=== PATIENT | male | born 1970 | race Caucasian/White ===

== ENCOUNTER 2020-06-06 13:48 | Inpatient (IN) | payer OTHER, SELFPAY ==
[2020-06-06] VITALS (25 sets, daily range): BP systolic 139–217; BP diastolic 104–184; PULSE 58–130; RESP 15–35; TEMP 36.5–37; O2SAT 91–98; BMI 46.3; BMI 45.6
--- NOTE | 2020-06-06 14:17 | EKG12_ITS ---
Test Reason : SOB Blood Pressure : / mmHG Vent. Rate : 134 BPM Atrial Rate : 150 BPM P-R Int : 000 ms QRS Dur : 104 ms QT Int : 346 ms P-R-T Axes : 000 017 077 degrees QTc Int : 516 ms Atrial fibrillation with rapid ventricular response with premature ventricular or aberrantly conducte d complexes Nonspecific T wave abnormality Abnormal ECG Confirmed by SERA ÁLVAREZ, BALTAZAR ([id number]), manuscript editor DIAMOND PHILIPPE ([id number]) on 06/08/2020 12:43:09 PM Referred By: ANN-MARIE Confirmed By:BALTAZAR ZAMORA MD
--- NOTE | 2020-06-06 14:18 | ED.DCSUM_ITS ---
History of Present Illness Chief Complaint: Shortness of Breath Informant: Patient Onset: Today Activity at onset: Light Activity Timing: Waxes and wanes Quality: Dyspnea on exertion Current Severity: Gone Maximum Severity: Severe Worsened by: Exertion Relieved by: Rest Associated Symptoms: Negative for: Cough, Fever Chest Pain: None Narrative: 50-year-old male with a history of high blood pressure presenting with shortness of breath that occurred today with very little exertion/walking on a flat surface. States he has had dyspnea with exertion that has been relatively mild ever since he had Covid at the beginning of April. 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 He then quarantine until the end of April. He states ever since he has had some mild dyspnea with exertion but no chest discomfort. Today his episode was way out of proportion to what it usually has been with regards to how much exertion he was doing. He also states that his son several years ago in an accident, and as a result when his blood pressure medicine ran out he stopped taking it and has not seen a doctor since. This is also related to the fact that his PCP Dr. Carlson left the area. In the last week or so, he has also had some edema in both of his legs. He denies orthopnea but states he never lies down flat, he has an incline bed. PE Risk Factors: Negative for: Cancer, OCP + Smoking + > 35, Prior DVT or PE, Recent immobilization, Recent surgery, Recent travel - Past Medical History (1) Hypertension Status: Chronic Past Medical History - Allergies and Home Meds Allergies/Adverse Reactions: Allergies No Known Allergies Allergy (Verified 06/06/20 13:48) Primary Care Physician: Stephane Carlson MD [NON-STAFF] - Lives: Spouse/ Significant Other Review of Systems General: Reports: Malaise. Denies: Chills, Fever, Sweats Eyes: Reports: - - No current loss of taste/smell. Denies: Visual changes - bilaterally, Diplopia ENT: Denies: Bilateral ear pain, Rhinorrhea, Sore throat Cardiovascular: Denies: Chest pain, Palpitations Respiratory: Reports: Dyspnea on exertion. Denies: Cough, Sputum Gastrointestinal: Reports: - - Abdominal bloating for several weeks. Denies: Abdominal pain, Nausea, Vomiting, Diarrhea, Melena, Hematochezia Genitourinary: Denies: Dysuria, Hematuria, Frequency Musculoskeletal: Reports: Swelling. Denies: Myalgias, Back pain, Extremity Pain Skin: Denies: Rash, Wounds Neurological: Denies: Headache, Weakness, Numbness Physical Exam Vital Signs/Narrative: Vital Signs Temp Pulse Resp BP Pulse Ox 06/06/20 13:49 97.7 F L 58 L 18 214/149 H 98 Inital Vital Signs reviewed: Yes General: Well nourished, Well developed, Obese, No Acute Distress Head: Normocephalic, Atraumatic Eyes: Perrl, EOMI ENT: Moist mucous membranes, No rhinorrhea Neck: Supple, Nontender, No lymphadenopathy, No JVD Cardiovascular: No murmurs, Irregular, Tachycardia Respiratory: No distress, CTA bilaterally, Chest nontender Abdomen: Soft, Nontender, Nondistended, Normal bowel sounds Back: Nontender, Normal Inspection Extremities: Nontender, Edema - 2+ both lower extremities, symmetric, to the knees. Negative for: Calf Tenderness Skin: Normal color, No rash, No Trauma Neurological: Alert, Oriented x3, Cranial nerves II-XII grossly intact, Normal Strength, Normal Sensation, Normal Gait Psychological: Normal affect, Normal Mood Diagnostic/Tx/Re-eval Chest X-Ray - ED: 1 View, Read by ED Physician, CHF - Mild Impressions Chest X-Ray 06/06/20 15:10 IMPRESSION: Cardiomegaly. Mild degree of vascular congestion suggestive of mild degree of CHF. Electronically Signed: Koffi Greer MD at 15:26 EST , Service support , 06/06/20 15:10 Chest 1 View (Portable) [RAD] Stat 06/06/20 14:50 Mucosa - Nose SARS-CoV-2 Antigen (Rapid) - Final Laboratory Results 06/06/20 06/06/20 06/06/20 14:47 14:47 14:47 WBC 9.6 RBC 4.78 Hgb 14.6 Hct 45.6 MCV 95.4 H MCH 30.5 MCHC 32.0 RDW Std Deviation 52.5 H RDW Coeff of Suzanne 15.0 H Plt Count 219 MPV 11.0 Immature Gran % (Auto) 0.400 Neut % (Auto) 81.2 H Lymph % (Auto) 9.8 L [place] % (Auto) 7.9 Eos % (Auto) 0.5 Baso % (Auto) 0.2 Absolute Neuts (auto) 7.8 H Absolute Lymphs (auto) 0.94 Nucleated RBC % 0 D-Dimer Quant (PE/DVT) Cancelled Sodium 141 Potassium 3.7 Chloride 104 Carbon Dioxide 31.0 Anion Gap 6 BUN 18 Creatinine 1.07 Estim Creat Clear Calc 106.40 Est GFR (MDRD) Af Amer 95 Est GFR (MDRD) Non-Af 78 BUN/Creatinine Ratio 16.8 Glucose 95 Calcium 8.9 Troponin I 0.035 B-Natriuretic Peptide 06/06/20 06/06/20 14:47 15:55 WBC RBC Hgb Hct MCV MCH MCHC RDW Std Deviation RDW Coeff of Suzanne Plt Count MPV Immature Gran % (Auto) Neut % (Auto) Lymph % (Auto) [place] % (Auto) Eos % (Auto) Baso % (Auto) Absolute Neuts (auto) Absolute Lymphs (auto) Nucleated RBC % D-Dimer Quant (PE/DVT) 0.46 Sodium Potassium Chloride Carbon Dioxide Anion Gap BUN Creatinine Estim Creat Clear Calc Est GFR (MDRD) Af Amer Est GFR (MDRD) Non-Af BUN/Creatinine Ratio Glucose Calcium Troponin I B-Natriuretic Peptide 212.2 H - Rhythm Strip Rhythm Strip: A-fib Rate: 135 Ectopy: None - EKG Initial EKG Interpretation: No Acute Injury Pattern, Atrial Fibrillation Prior: No Prior - Medical Decision Making Patient was given IV Lasix and Cardizem. This did lower his blood pressure some, however he did not provide any significant tachycardia control. Therefore additionally he was given a nitroglycerin, additional dose of Cardizem, placed on a Cardizem drip, and will be admitted to the hospital for what appears to be new onset atrial fibrillation with rapid ventricular response, and new onset congestive heart failure. Discussed with hospitalist. Patient is no respiratory distress and doing well while resting, sitting in bed, and I do not think requires intensive care and should be fine for PCU at this time. All questions answered at the bedside with present. Critical care time (excluding procedures): 30-74 minutes - 35 minutes including time spent discussing with patient and family, consultants, arrange admission, and performed direct patient care and reevaluation of the bedside as well as documentation. Time exclusive of procedures. ED Disposition - Plan for ED Patient: Disposition: Acute Care Hospital [facility] Diagnosis: Acute congestive heart failure, Hypertensive urgency, Atrial fibrillation with rapid ventricular response Referrals: Stephane Carlson MD [NON-STAFF] -
[2020-06-06] MEDS: Furosemide 20 MG/2 ML VIAL IV (14:57)
[2020-06-06] MEDS: dilTIAZem 25 MG/5 ML Vial 20 MG IV BOLUS (15:02)
[2020-06-06 15:05] LABS: Absolute Lymphocyte Count 0.94 X10^3/uL (0.83-4.51); Absolute Neutrophil Count 7.8 X10^3/uL (2.0-7.7); Basophil# 0.02 X10^3/uL; Basophil% 0.2 % (0-1); Eosinophil# 0.05 X10^3/uL; Eosinophils% 0.5 % (0-5); Hematocrit 45.6 % (40-54); Hemoglobin 14.6 g/dL (13.0-16.5); Lymphocyte # 0.94 X10^3/ul (4.0); Lymphocyte % 9.8 % (19-41); Mean Corpuscular Hgb 30.5 pg (27.0-32.0); Mean Corpuscular Volume 95.4 fL (80-94); Monocyte# 0.76 X10^3/uL; Monocyte% 7.9 % (0-10); NRBC Flagged by Analyzer 0 % (0-5); Neutrophil # 7.79 X10^3/uL (2.7-7.7); Neutrophil % 81.2 % (47-70); Platelet Count 219 K/mm3 (150-450); RBC Distribution Width SD 52.5 fl (35.1-43.9); Red Blood Count 4.78 M/mm3 (4.6-6.2); White Blood Count 9.6 K/mm3 (4.4-11.0)
--- NOTE | 2020-06-06 15:10 | RAD_ITS ---
STUDY: X-RAY CHEST REASON FOR EXAM: Male, 50 years old. INCREASED SHORTNESS OF BREATH AND LOSS OF TASTE AND SMELL TECHNIQUE: Single AP portable view of the chest. COMPARISON: None. FINDINGS: EKG electrodes are seen. Mild degree of vascular congestion. There is no demonstrated pleural abnormality. There is moderate cardiac enlargement. Normal mediastinum and see. Normal visualized pulmonary arteries. Normal visualized aortic arch and descending thoracic aorta. Normal visualized thoracic spine. Normal visualized ribs, clavicles, and shoulders. There is no demonstrated abnormality of the visualized soft tissue structures of the upper abdomen. RAD/Chest 1 View (Portable) IMPRESSION: Cardiomegaly. Mild degree of vascular congestion suggestive of mild degree of CHF. Electronically Signed: Koffi Greer MD at 15:26 EST , Service support ,
[2020-06-06 15:31] LABS: BNP,B-Type NATRIURETIC PEPTIDE 212.2 pg/mL (0-100)
[2020-06-06 15:40] LABS: Anion Gap 6 (5-15); BUN 18 mg/dL (7-18); BUN/Creat Ratio 16.8 RATIO (10-20); Calcium,Total 8.9 mg/dL (8.5-10.1); Chloride 104 mmol/L (98-107); Creatinine, Serum 1.07 mg/dL (0.70-1.30); EST Glomerular Filtration Rate 78 mL/min (>60); Est Glom Filt Rate - Afr Amer 95 mL/min (>60); Glucose 95 mg/dL (74-106); Potassium 3.7 mmol/L (3.5-5.1); Sodium Level 141 mmol/L (136-145)
[2020-06-06 16:22] LABS: D-Dimer Quantitative (DVT/PE) 0.46 FEU/ug/m (0.27-0.49)
--- NOTE | 2020-06-06 16:56 | PCM.HP.STD ---
Problem List (1) Hypertension Status: Chronic (2) Acute congestive heart failure Status: Acute (3) Hypertensive urgency Status: Acute (4) Atrial fibrillation with rapid ventricular response Status: Acute History of Present Illness Date of Admission: 06/06/20 Chief Complaint: Shortness of breath. The patient is a 50 year old M with past medical history as mentioned above presented to the emergency room because of shortness of breath. Patient stated the symptoms has been intermittent for the last several weeks, always exertional especially up on climbing stairs, relieved with rest, associated with mild cough as well as intermittent orthopnea and without aggravating or relieving factors. He denies fever or chills. He mentioned that he was tested positive for COVID-19 on April 17, 2020. He did have mild symptoms of cough and loss of smell but there was no significant shortness of breath. At that time, he did have some episodes of intermittent mild shortness of breath but he thought that it is expected. Patient mentioned that sometimes he wake up from sleep because of shortness of breath. He denied chest pain, palpitation, dizziness or lightheadedness. He mentioned that he had a history of hypertension years ago but he stopped taking his medications and stopped going to his doctor. Sadly, he mentioned that he lost his son who was 3 years old today 12 years ago. After he lost his time, he was severely depressed. In the emergency department, he was in A. fib with RVR, blood pressure was elevated, he was afebrile, pulse ox was 95% on room air. His routine blood work was unremarkable. EKG revealed A. fib with RVR, heart rate was up to 140s, no acute hemic changes. Troponin was 0.035. BNP was elevated at 212. D-dimer was negative. Chest x-ray showed mild bilateral pulmonary vascular congestion. Received 1 dose of IV Cardizem bolus and heart rate remained high up to 130s. He is being admitted for new onset A. fib with RVR, acute mild CHF and uncontrolled hypertension. Past Medical History Past Medical History (Chronic Problems): Chronic Problems Hypertension (Chronic) Allergies No Known Allergies Allergy (Verified 06/06/20 13:48) Home Medications: Ambulatory Orders Medication Instructions Recorded NK 06/06/20 Surgical History: noncontributory Psychiatric History: No pertinent psych hx Lives: Spouse/ Significant Other Smoking Status: Never smoker Alcohol: None Drugs: None - *Family History Maternal History Items: Hypertension, - - Atrial fibrillation. Paternal History Items: - - Atrial fibrillation. Review of Systems Constitutional: Denies: Anorexia, Chills, Fever, Night Sweats Eyes: Denies: Blurred vision, Conjunctivae Inflammation, Double vision, Drainage, Redness HEENT: Denies: Difficulty Hearing, Ear Pain, Eye Pain, Nasal Congestion, Sore Throat Cardiovascular: Denies: Chest Pain, Chest Pressure, Chest Tightness, Heaviness, Light Headedness, Palpitations, Syncope Respiratory: Reports: Shortness of breath upon exertion. Denies: Cough, Hemoptysis, Pleuritic Pain, Shortness of Breath, Sputum production, Wheezing Gastrointestinal: Denies: Abdominal Pain, Constipation, Diarrhea, Nausea, Vomiting Genitourinary: Denies: Dysuria, Frequency, Hematuria Musculoskeletal: Denies: Arm Pain, Back Pain, Foot Pain Skin: Denies: Dryness, Rash Neurological: Denies: Balance problems, Double vision, Change in Speech, Slurred speech, Confusion, Headaches, Incoordination Psychiatric: Denies: Anxiety, Depression Endocrine: Denies: Change in Body Habitus, Polydipsia, Polyuria VTE Information - Inpt Only VTE Present on Admission: No VTE Mechan Device Prophylaxis: None VTE Pharm Prophylaxis ordered?: Yes Patient Problems: Active and Suspected Problems Acute congestive heart failure (Acute) Hypertensive urgency (Acute) Atrial fibrillation with rapid ventricular response (Acute) - Physical Exam Vitals/I&O's: Vital Signs Temp Pulse Resp BP Pulse Ox 98.2 F 112 H 30 H 165/129 H 95 06/06/20 16:12 06/06/20 16:12 06/06/20 16:12 06/06/20 16:12 06/06/20 16:12 Oxygen Delivery Method Room Air Weight: 390 lb 3.491 oz Body Mass Index (BMI) 46.3 Intake and Output for Last 24 Hours 06/04/20 06/05/20 06/06/20 23:59 23:59 23:59 Intake Total 700 / 700 Output Total 1300 / 1300 Balance -600 / -600 General: Alert, Oriented x3, Cooperative, No apparent distress HEENT: Atraumatic, PERRLA, EOMI, Normocephalic Oral: Moist Mucosa, No Gingival or Mucosal Lesions/ Ulcerations Neck: Supple, No JVD, Negative Carotid Bruits, Trachea Midline, Thyroid Normal Size and Texture Lungs: Clear to auscultation, No rhonchi, No wheeze, No rales, Diminished, - - Decreased breath sounds at the bases, otherwise clear. Cardiovascular: Normal S1, Normal S2, No murmurs, PMI Normal, Irregular Rate, Tachycardic Abdomen: Bowel Sounds Present, Soft, Non Tender, Non-Distended, No Hepato-splenomegaly, Obese Extremities: No clubbing, No cyanosis, Edema - + Edema. Skin: No rashes, No breakdown Lymphatic: No Cervical, Supraclavicular, or Inguinal Adenopathy Neurological: Cranial nerves II-XII grossly intact, Motor Exam 5/5 strength throughout Psych/Mental Status: Normal Affect, Appropriate, Alert and oriented to time, place, person, mood and affect Microbiology Past 72 Hours 06/06/20 14:50 Mucosa - Nose SARS-CoV-2 Antigen (Rapid) - Final Laboratory Results 06/06/20 14:47: WBC 9.6, RBC 4.78, Hgb 14.6, Hct 45.6, MCV 95.4 H, MCH 30.5, MCHC 32.0, RDW Std Deviation 52.5 H, RDW Coeff of Suzanne 15.0 H, Plt Count 219, MPV 11.0, Immature Gran % (Auto) 0.400, Neut % (Auto) 81.2 H, Lymph % (Auto) 9.8 L, Cottle % (Auto) 7.9, Eos % (Auto) 0.5, Baso % (Auto) 0.2, Absolute Neuts (auto) 7.8 H, Absolute Lymphs (auto) 0.94, Nucleated RBC % 0 06/06/20 14:47: D-Dimer Quant (PE/DVT) Cancelled 06/06/20 14:47: Sodium 141, Potassium 3.7, Chloride 104, Carbon Dioxide 31.0, Anion Gap 6, BUN 18, Creatinine 1.07, Estim Creat Clear Calc 106.40, Est GFR (MDRD) Af Amer 95, Est GFR (MDRD) Non-Af 78, BUN/Creatinine Ratio 16.8, Glucose 95, Calcium 8.9, Troponin I 0.035 06/06/20 14:47: B-Natriuretic Peptide 212.2 H 06/06/20 15:55: D-Dimer Quant (PE/DVT) 0.46 Clinical Impression(s) from Imaging Studies Chest X-Ray 06/06/20 15:10 IMPRESSION: Cardiomegaly. Mild degree of vascular congestion suggestive of mild degree of CHF. Electronically Signed: Koffi Greer MD at 15:26 EST , Service support , Current Medications Diltiazem HCl 125 mg/ Dextrose 125 mls @ 5 mls/hr IV .Q25H JULISSA; Protocol Stop: 06/07/20 17:44 Assessment/Plan All Active Problems Acute congestive heart failure (Acute) Hypertensive urgency (Acute) Atrial fibrillation with rapid ventricular response (Acute) This is a 50 years old male patient presented to the emergency room because of shortness of breath, found to have new onset A. fib with RVR and mild acute CHF as well as uncontrolled hypertension and he is being admitted for evaluation and treatment. #1 new onset A. fib with RVR: EKG reviewed, no acute ischemic changes, heart rate has been up to 140s. Troponin is negative. Chest x-ray reviewed as above. [id number] score is 1, low moderate risk for stroke and patient can go with either antiplatelets or anticoagulation. Plan: Admit to PCU, cardiac monitoring, serial cardiac enzymes, repeat EKG tomorrow morning, start IV Cardizem drip, start metoprolol 50 mg p.o. twice daily, baby aspirin 81 mg p.o. daily, check TSH, serum magnesium, 2D echocardiogram, repeat CBC and BMP tomorrow morning. #2 mild acute CHF, unspecified type: Based on symptoms of shortness of breath, orthopnea, chest x-ray findings and elevated BNP. Plan: Start IV Lasix, metoprolol, lisinopril, 2D echocardiogram, fluid restriction, repeat BMP tomorrow morning. #3 hypertensive urgency/uncontrolled hypertension: Patient had a history of hypertension but he stopped taking his medication years ago. Blood pressure was up to 190s in the ED. Plan: Start metoprolol twice daily, lisinopril daily, IV hydralazine as needed. #4 DVT prophylaxis: Subcu Lovenox. This note was generated with Dragon dictation software. It may contain incorrect words, spelling, and punctuation that were not noted in checking the note before signing. Inpatient E&M: 62182 Init Hosp L3
[2020-06-06] MEDS: dilTIAZem 25 MG/5 ML Vial 10 MG IV BOLUS (17:04)
[2020-06-06] MEDS: Nitroglycerin SL (ED/IMG/CATH) 0.4 MG TABLET SUBLINGUAL (17:28)
--- NOTE | 2020-06-06 17:42 | ECHOCS_ITS ---
Version 2 Reason For Study: Afib/Flutter Procedure This was a 2D Doppler, Color Flow transthoracic echocardiogram. The study was technically difficult. Contrast injection was performed. Exam performed portable in patient room. Left Ventricle Moderate concentric left ventricular hypertrophy. Based upon the 2D echocardiographic and contrast enhanced images obtained there appears to be grossly normal left ventricular size, wall motion, and systolic function. The estimated ejection fraction is 55 %. Unable to assess diastolic dysfunction. Right Ventricle Normal RV size. Normal systolic function. Atria The left atrium is moderately enlarged. The right atrium is moderately enlarged. No doppler evidence for ASD. Mitral Valve There is no mitral annular calcification. Normal mitral valve. Mild (1+) mitral valve insufficiency. Tricuspid Valve Normal tricuspid valve. Moderate (2+) eccentric tricuspid valve insufficiency. Unable to estimate RV systolic pressure/pulmonary artery pressure due to technically difficult study. Aortic Valve Trisinus/trileaflet aortic valve. Normal aortic valve. Pulmonic Valve The pulmonic valve is not well visualized. Mild (1+) pulmonic valve insufficiency. Great Vessels The aortic root is not well visualized. Pericardium/Pleural No pericardial effusion. Medication Diluted definity 5ml given slow IV push to enhance endocardial definition. MMode/2D Measurements & Calculations LVIDd: 5.6 cm IVSd: 1.4 cm LA dimension: 6.2 cm LVIDs: 4.2 cm LVPWd: 1.5 cm RVDd: 5.1 cm FS: 24.3 % LAV(MOD-bp): 137.0 ml LA A4 area: 39.3 cm2 RA A4 area: 33.9 cm2 LAV(MOD-bp) Indexed: 46.4 ml/m2 LAV(MOD-sp2): 108.0 ml LAV(MOD-sp4): 159.4 ml Doppler Measurements & Calculations MV E max beny: 100.4 cm/sec Ao V2 max: 130.4 cm/sec LV V1 max: 93.3 cm/sec Ao max P.8 mmHg LV V1 max P.5 mmHg MR max beny: 453.6 cm/sec PA V2 max: 57.2 cm/sec MR max P.3 mmHg Interpretation Summary The study was technically difficult. Contrast injection was performed. Based upon the 2D echocardiographic and contrast enhanced images obtained there appears to be grossly normal left ventricular size, wall motion, and systolic function. The estimated ejection fraction is 55 %. Moderate concentric left ventricular hypertrophy. The left atrium is moderately enlarged. The right atrium is moderately enlarged. Mild (1+) mitral valve insufficiency. Moderate (2+) eccentric tricuspid valve insufficiency. Mild (1+) pulmonic valve insufficiency. Unable to estimate RV systolic pressure/pulmonary artery pressure due to technically difficult study. Unable to assess diastolic dysfunction. Ordering Physician: Zayda Hunter Referring Physician: No PCP noted Performed By: Reji Cobian RCS
[2020-06-06] MEDS: Furosemide 40 MG/4 ML Vial IV (18:00)
[2020-06-06 18:31] LABS: Magnesium 1.9 mg/dL (1.6-2.6); Thyroid Stim Hormone (TSH) 2.61 uIU/mL (0.358-3.74)
[2020-06-06] MEDS: hydrALAZINE 20 MG/ML Vial 10 MG IV (19:44)
--- NOTE | 2020-06-06 21:29 | NURSING ---
Dr. Hunter notified by milo OGDEN that HR was not within titration parameters of cardizem, maxed at 15 mg/hr. Still awaiting orders at shift change, HR 90-110. Dr. Sanchez notified around 2099, parameters changed to allow for HR 55-120. MELVI Douglas.
[2020-06-06] MEDS: Metoprolol Tartrate 50 MG Tablet PO (21:38)
[2020-06-06] MEDS: 0.9% Saline Lock 10 ML Syringe IV (21:38)
[2020-06-07] VITALS (31 sets, daily range): BP systolic 102–162; BP diastolic 74–110; PULSE 42–82; RESP 12–33; TEMP 36.4–36.7; O2SAT 90–100
--- NOTE | 2020-06-07 05:55 | EKG12_ITS ---
Test Reason : AM EKG Blood Pressure : / mmHG Vent. Rate : 067 BPM Atrial Rate : 048 BPM P-R Int : 000 ms QRS Dur : 104 ms QT Int : 500 ms P-R-T Axes : 000 012 138 degrees QTc Int : 528 ms Atrial fibrillation with premature ventricular or aberrantly conducted complexes ST & T wave abnormality, consider anterolateral ischemia Prolonged QT Abnormal ECG Confirmed by LILIANE ÁLVAREZ, SHERRI ([id number]), fashion editor DIAMOND PHILIPPE ([id number]) on 06/08/2020 9:29:22 AM Referred By: TRAE Confirmed By:SHERRI MOMIN MD
--- NOTE | 2020-06-07 06:17 | NURSING ---
Pt had a few episodes of bradycardia down to 39, cardizem gtt decreased from 15 to 10 ml/hr @ 0610. MELVI Douglas.
[2020-06-07 06:35] LABS: Absolute Lymphocyte Count 1.39 X10^3/uL (0.83-4.51); Basophil# 0.03 X10^3/uL; Basophil% 0.4 % (0-1); Eosinophil# 0.09 X10^3/uL; Eosinophils% 1.1 % (0-5); Hematocrit 43.5 % (40-54); Hemoglobin 13.6 g/dL (13.0-16.5); Lymphocyte # 1.39 X10^3/ul (4.0); Lymphocyte % 16.3 % (19-41); Mean Corp Hgb Conc 31.3 g/dL (32-36); Mean Corpuscular Hgb 30.2 pg (27.0-32.0); Mean Corpuscular Volume 96.7 fL (80-94); Mean Platelet Vol. 11.3 fl (6.2-12.0); Monocyte# 0.95 X10^3/uL; Monocyte% 11.2 % (0-10); NRBC Flagged by Analyzer 0 % (0-5); Neutrophil # 6.03 X10^3/uL (2.7-7.7); Neutrophil % 70.8 % (47-70); Platelet Count 218 K/mm3 (150-450); RBC Distribution Width CV 15.3 % (11.6-14.6); RBC Distribution Width SD 54.2 fl (35.1-43.9); White Blood Count 8.5 K/mm3 (4.4-11.0)
[2020-06-07 07:02] LABS: Anion Gap 6 (5-15); BUN 16 mg/dL (7-18); BUN/Creat Ratio 16.2 RATIO (10-20); Calcium,Total 8.6 mg/dL (8.5-10.1); Chloride 106 mmol/L (98-107); Creatinine, Serum 0.99 mg/dL (0.70-1.30); EST Glomerular Filtration Rate 86 mL/min (>60); Est Glom Filt Rate - Afr Amer 104 mL/min (>60); Glucose 79 mg/dL (74-106); Potassium 3.2 mmol/L (3.5-5.1); Sodium Level 144 mmol/L (136-145)
[2020-06-07] MEDS: Aspirin 81 MG TAB.CHEW PO (08:14)
[2020-06-07] MEDS: Enoxaparin 40 MG/0.4 ML Syringe SC (08:14)
[2020-06-07] MEDS: Metoprolol Tartrate 50 MG Tablet PO ×2 (08:14→21:15)
[2020-06-07] MEDS: Lisinopril 20 MG Tablet PO (08:14)
[2020-06-07] MEDS: Furosemide 40 MG/4 ML Vial IV ×2 (08:15→17:14)
--- NOTE | 2020-06-07 11:34 | CASEMGMT ---
MELVI HOUSTON assessment: Face to Face with patient for initial transition planning/care coordination assessment. MELVI HOUSTON introduced self and role at [facility], pt voices understanding and consents to assessment. Pt is sitting up in chair in no distress on room air. Pt is A/Ox4 and answers all questions appropriately at this time. Care providers, pharmacy, and demographics verified. Presentation: Pt w/ increased SOB and loss of taste/smell. believes he had COVID in May 2019. No documented result. Admitting dx: New onset Afib RVR, CHF, HTN PCP: Pt states no current PCP and provided a listed of local doctors Specialists: Pt states no current specialists but states will likely need to see pulmonology and provided local list. Preferred Pharmacy: [facility] Insurance: [employer] Prescription Benefit: [employer] Living Will/HPOA: Pt states does not have LW/HPOA but states they need to get working on that and have a friend that can assist with completing. LNOK: [place], Living Arrangements: Pt states lives with in 2 story home and states no concerns at home at this time. Pt states is independent with ADL's. Transportation: Pt states drives self and states no transportation concerns. DME/HHC: Pt states no currrent DME or need for any further DME. Pt states no hx of HHC or SNF in the past. Pt states no concerns with going home at time of discharge. 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 Pt states does not smoke cigarettes but does drink ETOH occasionally. Pt states no further concerns/needs at this time. CM to follow for any further discharge planning/needs. Advised pt to ask for CM if any further questions/concerns/needs arise, voices understanding. Pt Goal: Home Plan[place] MELVI [place]ON
--- NOTE | 2020-06-07 15:13 | CASEMGMT ---
According to the [employer] website, the following are in-network tertiary facilities: [facility], [place], [facility], and . Solomon OGDEN CM
[2020-06-07] MEDS: Potassium Chloride Oral Tablet 20 MEQ 40 MEQ PO (15:46)
[2020-06-07] MEDS: 0.9% Saline Lock 10 ML Syringe IV (17:14)
--- NOTE | 2020-06-07 17:16 | PCM.CONS.C ---
Problem List (1) Atrial fibrillation with rapid ventricular response Status: Acute (2) Acute congestive heart failure Status: Acute (3) Hypertension Status: Chronic (4) Abnormal electrocardiogram Status: Acute Reason for Consult Date of Consultation: 06/07/20 History of Present Illness: The patient is a 50 year oldagw-yunl-gvv white male who is referred for evaluation of atrial fibrillation, congestive heart failure , hypertension, and an abnormal ECG with dynamic T wave changes concerning for anterolateral myocardial ischemia. He states he had been diagnosed with hypertension in the past. He admits he has not taken his hypertensive medication for years. He states recently he is noted becoming more short of breath and dyspneic especially with activity such as going up an incline. He is also noted more bloating sensation as well as lower extremity peripheral pitting edema. He did not necessarily complain of other forms of chest discomfort nor did he have acute orthopnea or PND. He states he did have an episode where he noted his heart rate going faster. He did not have any near-syncope or syncope. He presented to the hospital for further evaluation. He was noted to have atrial fibrillation as well as to be hypertensive with systolic blood pressures reported in excess of 200 mmHg and diastolic blood pressures reported in excess of 100 mmHg. He was placed in the PCU for further evaluation and care. He was treated medically. He has remained in atrial fibrillation although his heart rate has slowed. He states he has felt better since his medical therapy and diuresis and weight loss respect to his breathing and his lower extremity edema. He is undergoing cardiac enzymes which were negative. BNP level was mildly elevated. His ECG demonstrated that he had developed dynamic T wave changes compatible with anterolateral myocardial ischemia. An echocardiogram was performed the results are noted below. [] Past Medical History Allergies/Adverse Reactions: Allergies No Known Allergies Allergy (Verified 06/06/20 13:48) Home Medications: Ambulatory Orders Medication Instructions Recorded NK 06/06/20 Past Medical History (Chronic Problems): Chronic Problems Hypertension (Chronic) Surgical History: noncontributory Psychiatric History: No pertinent psych hx - *Family History Maternal History Items: Hypertension, - - Atrial fibrillation. Paternal History Items: - - Atrial fibrillation. Lives: Spouse/ Significant Other Smoking Status: Never smoker Tobacco Use: Non-smoker Alcohol: None Drugs: None Review of Systems - Review of Systems General: Denies: Fever, Night Sweats, Fatigue Cardiovascular: Reports: Shortness of Breath, Shortness of Breath with Exertion, Peripheral Edema, Palpitations. Denies: Chest Discomfort, Orthopnea, PND, Lightheadedness, Dizziness, Near Syncope, Syncope Respiratory: Reports: Shortness of Breath. Denies: Cough, Sputum Production, Hemoptysis Gastrointestinal: Denies: Hematemesis, Hematochezia, Melena Genitourinary: Denies: Dysuria, Hematuria Skin: Denies: Rash Subjectve: This is a 50-year-old white male who appears to be resting comfortably at the moment in no acute distress. Objective: Vital Signs Temp Pulse Resp BP Pulse Ox 98.1 F 76 20 H 154/76 H 95 06/07/20 10:51 06/07/20 14:50 06/07/20 10:51 06/07/20 10:51 06/07/20 10:51 Oxygen Flow Rate (L/min) 4 Oxygen Delivery Method Room Air Weight: 384 lb 14.833 oz Body Mass Index (BMI) 45.6 Intake and Output for Last 24 Hours 06/05/20 06/06/20 06/07/20 23:59 23:59 23:59 Intake Total 781.16 / 1156.16 1125.66 / 1125.66 Output Total 1300 / 4550 5250 / 5250 Balance -518.84 / -3393.84 -4124.34 / -4124.34 General: Awake, Alert, Oriented x 3, Cooperative, No Acute Distress HEENT: Atraumatic, Normocephalic, PERRL, EOMI, Sclera Non Icteric Neck: Supple, Good ROM, No JVD Lungs: Clear to auscultation Cardiovascular: Irregular Rhythm, Normal S1, Normal S2 Vascular: No Carotid Bruits Abdomen: Bowel Sounds Present, Soft Extremities: Mild RLE Edema, Mild LLE Edema Neurological: No Focal Motor or Sensory Deficit Psych/Mental Status: Appropriate 06/06/20 14:47: Magnesium 1.9 06/06/20 19:22: Troponin I 0.032 06/06/20 22:25: Troponin I 0.031 06/07/20 05:15: Sodium 144, Potassium 3.2 L, Chloride 106, Carbon Dioxide 32.0, Anion Gap 6, BUN 16, Creatinine 0.99, Est GFR (MDRD) Af Amer 104, Est GFR (MDRD) Non-Af 86, BUN/Creatinine Ratio 16.2, Glucose 79, Calcium 8.6 06/07/20 05:15: WBC 8.5, RBC 4.50 L, Hgb 13.6, Hct 43.5, MCV 96.7 H, MCH 30.2, MCHC 31.3 L, Plt Count 218, MPV 11.3, Immature Gran % (Auto) 0.200, Neut % (Auto) 70.8 H, Lymph % (Auto) 16.3 L, [place] % (Auto) 11.2 H, Eos % (Auto) 1.1, Baso % (Auto) 0.4, Absolute Neuts (auto) 6.0, Nucleated RBC % 0 Rhythm: Atrial fibrillation EKG: Atrial fibrillation with nonspecific ST/T wave abnormality; atrial fibrillation with T wave abnormality compatible with myocardial ischemia-anterolateral ECHO: Interpretation Summary The study was technically difficult. Contrast injection was performed. Based upon the 2D echocardiographic and contrast enhanced images obtained there appears to be grossly normal left ventricular size, wall motion, and systolic function. The estimated ejection fraction is 55 %. Moderate concentric left ventricular hypertrophy. The left atrium is moderately enlarged. The right atrium is moderately enlarged. Mild (1+) mitral valve insufficiency. Moderate (2+) eccentric tricuspid valve insufficiency. Mild (1+) pulmonic valve insufficiency. Unable to estimate RV systolic pressure/pulmonary artery pressure due to technically difficult study. Unable to assess diastolic dysfunction. CXR: IMPRESSION: Cardiomegaly. Mild degree of vascular congestion suggestive of mild degree of CHF. Electronically Signed: Koffi Greer MD at 15:26 EST Assessment/Plan 1. Atrial fibrillation The patient presents with atrial fibrillation. The etiology may be multifactorial secondary to a combination of age, hypertension, as well as potentially other underlying cardiovascular disease related issues, taking into consideration to keep open for other etiologies that may occur. From a cardiac standpoint at the present time he is continuing rate control therapy. He will need to continue anticoagulation therapy as deemed appropriate. If he does not convert to sinus rhythm he will need to be considered for a future attempt at synchronized biphasic DC cardioversion. 2. Congestive heart failure There was concerns with the patient in the hospital that he had congestive heart failure. Based upon his noninvasive studies so far his overall LV systolic function appear to be grossly within normal limits/LVEF (taken into consideration was a technically diminished quality study). At the present time he will continue medical management. 3. Hypertension The patient was noted to be markedly hypertensive with findings concerning for hypertensive urgency/emergency when he arrived. This may be based upon his longstanding history of hypertension was not controlled. This may be contributing to his atrial dysrhythmia as well as potentially his findings that were concerning for CHF. He will need to have his blood pressure followed. He will need to continue medical management. 4. Abnormal ECG He does have dynamic T wave changes on his ECG concerning for anterolateral myocardial ischemia. Based upon his symptoms and his other objective findings it would be reasonable to consider him for further evaluation in the cardiac catheterization laboratory to evaluate for underlying CAD that may be contributing to and/or exacerbated by his other findings. The procedure and risks were discussed with him. He was agreeable to this approach. In the interim he will continue to be monitored and have his medicines adjusted accordingly. Comment: The patient's case was discussed and reviewed with the patient and Dr. Sosa. This note was generated using a voice recognition system and there may be incorrect words, spelling or punctuation that were not noted when reviewing the office note prior to saving. Procedure Criteria Procedure Type: Elective COVID Risk Discussion: The surgeon/proceduralist and patient have discussed in detail the risk of exposure to and/or potential harm posed by the COVID-19 virus with having a surgery/procedure at this time versus the risk of delaying the surgery/procedure. It is not possible to know either the risk of delaying the surgery or procedure or chance of getting an infection with perfect accuracy, but a joint decision was made between the patient and the surgeon/proceduralist to proceed at this time with the scheduled surgery/procedure as indicated on the consent form.
--- NOTE | 2020-06-07 17:54 | PN_ITS ---
Patient Problems: Active and Suspected Problems Acute congestive heart failure (Acute) Hypertensive urgency (Acute) Atrial fibrillation with rapid ventricular response (Acute) Abnormal electrocardiogram (Acute) Subjective: Patient was seen and examined today, he was taken off his Cardizem drip this morning, his echocardiogram was a difficult study and it appeared to show a normal ejection fraction but little else could be ascertained from the echo. I talked with cardiology today and they agreed to see the patient in consultation, patient's EKG this morning showed diffuse T wave inversions over the patient's precordial leads which was new compared with his EKG on admission yesterday, it was advised that the patient should have a cardiac catheterization tomorrow to rule out obstructive coronary disease, I think this is a mckeon thing to do and I told the patient my opinion that he should have the test and the patient had agreed with cardiology to have a cardiac catheterization done tomorrow. Patient has no complaints of any shortness of breath or chest pain at this time, he is continuing to get IV Lasix for CHF and he is on rate control medications. He will need a prescription for either Eliquis or Xarelto at the time of discharge, patient cannot undergo full anticoagulation with these agents due to his cardiac catheterization tomorrow. - Physical Exam Vitals/I&O's: Vital Signs Temp Pulse Resp BP Pulse Ox 97.6 F L 60 20 H 162/99 H 94 06/07/20 16:51 06/07/20 16:51 06/07/20 16:51 06/07/20 16:51 06/07/20 16:51 Oxygen Flow Rate (L/min) 4 Oxygen Delivery Method Room Air Weight: 174.6 kg Body Mass Index (BMI) 45.6 Intake and Output for Last 24 Hours 06/05/20 06/06/20 06/07/20 23:59 23:59 23:59 Intake Total 781.16 / 1156.16 1125.66 / 1125.66 Output Total 1300 / 4550 5250 / 5250 Balance -518.84 / -3393.84 -4124.34 / -4124.34 General: Alert, Oriented x3, Cooperative, No apparent distress, Well developed HEENT: Atraumatic, PERRLA, EOMI, Normocephalic Oral: Moist Mucosa Neck: Supple, No JVD, Trachea Midline, Thyroid Normal Size and Texture Lungs: Clear to auscultation, Normal air movement, No rhonchi, No wheeze Cardiovascular: No murmurs, PMI Normal, Irregular Rate, No rub noted Abdomen: Bowel Sounds Present, Soft, Non Tender, Non-Distended, No hernias noted Extremities: No clubbing, No cyanosis, No edema, Capillary Refill Less than 3 Seconds Skin: No rashes, No breakdown Musculoskeletal: No Tenderness to Palpation of Joints or Extremities Neurological: Cranial nerves II-XII grossly intact, Neuro grossly intact, Sensory exam intact to light touch and pain, Coordination normal Psych/Mental Status: Normal Affect, Appropriate, Alert and oriented to time, place, person, mood and affect Microbiology Past 72 Hours 06/06/20 14:50 Mucosa - Nose SARS-CoV-2 Antigen (Rapid) - Final Laboratory Results 06/06/20 14:47: Magnesium 1.9, TSH 2.61 06/06/20 19:22: Troponin I 0.032 06/06/20 22:25: Troponin I 0.031 06/07/20 05:15: Sodium 144, Potassium 3.2 L, Chloride 106, Carbon Dioxide 32.0, Anion Gap 6, BUN 16, Creatinine 0.99, Estim Creat Clear Calc 115.00, Est GFR (MDRD) Af Amer 104, Est GFR (MDRD) Non-Af 86, BUN/Creatinine Ratio 16.2, Glucose 79, Calcium 8.6 06/07/20 05:15: WBC 8.5, RBC 4.50 L, Hgb 13.6, Hct 43.5, MCV 96.7 H, MCH 30.2, MCHC 31.3 L, RDW Std Deviation 54.2 H, RDW Coeff of Suzanne 15.3 H, Plt Count 218, MPV 11.3, Immature Gran % (Auto) 0.200, Neut % (Auto) 70.8 H, Lymph % (Auto) 16.3 L, [place] % (Auto) 11.2 H, Eos % (Auto) 1.1, Baso % (Auto) 0.4, Absolute Neuts (auto) 6.0, Absolute Lymphs (auto) 1.39, Nucleated RBC % 0 Current Medications Acetaminophen (Acetaminophen 325 Mg Tablet) 650 mg PO Q6H PRN PRN PRN Reason: Pain Score 1-10/Temp > 100.7 F Aspirin (Aspirin 81 Mg Tab.Chew) 81 mg PO DAILY@0800 [facility] Last Admin: 06/07/20 08:14 Dose: 81 mg Documented by: Enoxaparin Sodium (Enoxaparin 40 Mg/0.4 Ml Syringe) 40 mg SC DAILY [facility] Last Admin: 06/07/20 08:14 Dose: 40 mg Documented by: Furosemide (Furosemide 40 Mg/4 Ml Vial) 40 mg IV BID@1000,1800 [facility] Last Admin: 06/07/20 17:14 Dose: 40 mg Documented by: Sodium Chloride () 250 mls @ 15 mls/hr IV .[id number] PRN PRN Reason: Saline Flush Sodium Chloride () 250 mls @ 15 mls/hr IV .[id number] PRN PRN Reason: Additional IVPB Infusion Sodium Chloride () 1,000 mls @ 0 mls/hr IV .Q0M [facility] Lisinopril (Lisinopril 20 Mg Tablet) 20 mg PO DAILY [facility] Last Admin: 06/07/20 08:14 Dose: 20 mg Documented by: Metoprolol Tartrate (Metoprolol Tartrate 50 Mg Tablet) 50 mg PO BID [facility] Last Admin: 06/07/20 08:14 Dose: 50 mg Documented by: Ondansetron HCl (Ondansetron 4 Mg/2 Ml Vial) 4 mg IV Q8H PRN PRN PRN Reason: NAUSEA/VOMITING Senna/Docusate Sodium (Senna/Docusate Sodium 1 Tablet) 2 tablet PO BID PRN PRN PRN Reason: Constipation Sodium Chloride (0.9% Saline Lock 10 Ml Syringe) 10 - 40 ml IV UD PRN PRN Reason: SALINE FLUSH Last Admin: 06/07/20 17:14 Dose: 10 ml Documented by: Zolpidem Tartrate (Zolpidem Tartrate 5 Mg Tablet) 5 mg PO QHS PRN PRN PRN Reason: INSOMNIA Medical Necessity - Tobacco Use Smoking Status: Never smoker Tobacco Use: Non-smoker Assessment/Plan All Active Problems Acute congestive heart failure (Acute) Hypertensive urgency (Acute) Atrial fibrillation with rapid ventricular response (Acute) Abnormal electrocardiogram (Acute) #1 acute diastolic congestive heart failure-possibly exacerbated by uncontrolled hypertension and atrial fibrillation-patient will remain on IV Lasix, cardiology is seeing him in consultation and participating in his care #2 new onset atrial fibrillation-at this time the patient is on rate control medications and he appears to be doing well as far as his rate is concerned #3 T wave changes across his precordial leads on his latest EKG this morning- significance of these changes were not known, it would be mckeon to rule out obstructive/nonobstructive coronary artery disease, patient will have a cardiac catheterization tomorrow #4 uncontrolled hypertension due to poor compliance with outpatient medications- patient's blood pressure is currently under control at this time #5 noncompliance with medical regimen-patient has been off his blood pressure medications for several years, he understands the importance of taking these medications, patient stated that his child several years ago in an auto accident and he was depressed for a long period of time and was not taking his medication. #6 morbid obesity #7 hypokalemia-patient was given supplemental potassium today Inpatient E&M: 82352 Subs Hosp L2
[2020-06-07] MEDS: Potassium Chloride Oral Tablet 20 MEQ PO (18:42)
[2020-06-07] MEDS: Zolpidem Tartrate 5 MG Tablet PO (23:54)
[2020-06-08] VITALS (23 sets, daily range): BP systolic 137–200; BP diastolic 90–131; PULSE 62–111; RESP 12–24; TEMP 36.6–36.8; O2SAT 93–99
[2020-06-08 05:35] LABS: Anion Gap 4 (5-15); BUN 19 mg/dL (7-18); BUN/Creat Ratio 15.8 RATIO (10-20); Calcium,Total 8.4 mg/dL (8.5-10.1); Chloride 106 mmol/L (98-107); Cholesterol 136 mg/dL (200); EST Glomerular Filtration Rate 69 mL/min (>60); Est Glom Filt Rate - Afr Amer 83 mL/min (>60); Estimated Creatinine Clearance 94.88 ml/min; Glucose 83 mg/dL (74-106); High Density Lipoprotein 32 mg/dL; Potassium 3.6 mmol/L (3.5-5.1); Sodium Level 142 mmol/L (136-145); Triglycerides 77 mg/dL; Very Low Density Lipoprotein 15 mg/dL (5-40)
--- NOTE | 2020-06-08 05:55 | EKG12_ITS ---
Test Reason : AM EKG Blood Pressure : / mmHG Vent. Rate : 084 BPM Atrial Rate : 267 BPM P-R Int : 000 ms QRS Dur : 110 ms QT Int : 438 ms P-R-T Axes : 000 029 052 degrees QTc Int : 517 ms Atrial fibrillation Nonspecific T wave abnormality Prolonged QT Abnormal ECG When compared with ECG of 07-JUN-2020 05:08, MANUAL COMPARISON REQUIRED, DATA IS UNCONFIRMED Confirmed by JEANETTE ÁLVAREZ, RACHEAL ([id number]), copy editor DIAMOND PHILIPPE ([id number]) on 06/08/2020 12:56:42 P M Referred By: ARCHIE Confirmed By:RG REID MD
[2020-06-08] MEDS: Aspirin 81 MG TAB.CHEW PO (05:59)
[2020-06-08] MEDS: Lisinopril 20 MG Tablet PO (05:59)
[2020-06-08] MEDS: Digoxin 250 MCG/ML Ampul 500 MCG IV (09:07)
[2020-06-08] MEDS: Metoprolol Tartrate 100 MG Tablet PO (09:07)
[2020-06-08] MEDS: 0.9% Normal Saline 1,000 ML 50 ML IV (09:08)
--- NOTE | 2020-06-08 09:36 | CL.D_ITS ---
Patient Name: BRENNEN PIÑA Study Date: 06/08/2020 Performing: Dario Sharma MD Ht: 77 inches 196 cm : 1970 Wt: 386.3 lbs 175 kg Age: 50 Gender: male BSA: 2.96 PROCEDURE(S) PERFORMED [id number]/LV CLINICAL PROFILE AND INDICATIONS Indications: Suspected CAD, Cardiac Arrythmia Heart Failure: NYHA Class: 3, Newly Diagnosed: Yes, Heart Failure Type: Diastolic Stress/Imaging Stress/Image Study Performed: No Angina Classification Anginal Classification w/in 2 Weeks: Anginal Equivalent Dyspnea CAD Presentations: Other: dyspnea on exertion CONCLUSIONS Elevated Left Ventricular End Diastolic Pressure Global LV systolic dysfunction- Mild LVEF: by LV gram 45 % [place] Multivessel CAD RECOMMENDATIONS Risk factor modification Medical therapy DESCRIPTION OF PROCEDURE The patient arrived to the procedure lab. The risks and benefits of the procedure as well as a full d escription of our services here and current unavailability of surgical backup were fully explained to the patient and/or their significant other prior to the catheterization. The Timeout was completed, verifying the correct patient and procedure. The patient's procedural site was prepped and draped in the usual fashion. Local anesthetic was given subcutaneously to right radial region with Lidocaine 2% . Using a modified Seldinger technique, arterial access was obtained via the right radial artery, a 6 Fr sheath was inserted. Left Coronary Artery selective angiography was performed in multiple views u sing a 5 Fr. JL3.5 catheter. Right Coronary Artery selective angiography was then performed in multip le views using a 5 Fr. MPA 2 catheter. Left Ventriculography was performed in CARDENAS projection using a 5 Fr. Pigtail catheter. LV to AO pullback pressures were then recorded.The arterial sheath was pulled and a TR Band was applied for hemostasis 15cc air inserted CORONARY ANGIOGRAPHY DOMINANCE: Right Dominant LEFT HEART ASSESSMENT Left Ventricular Ejection Fraction: by LV Gram 45 % Global Hypokinesis - Mild Elevated Left Ventricular End Diastolic Pressure LVEDP: 21 mmHg LEFT MAIN: Angiographically normal LEFT ANTERIOR DESCENDING ARTERY: PROX LAD: Mild luminal irregularities DIAGONAL 1: Proximal - Mild luminal irregularities CIRCUMFLEX ARTERY: PROX CIRC: Mild luminal irregularities RIGHT CORONARY ARTERY: Mild luminal irregularities PROX RCA: 50 % Stenosis AORTIC ROOT: Angiographically normal COMPLICATIONS No Complications PROCEDURE MEDICATIONS Fentanyl 50 mcg IV Versed 1 mg IV Oxygen: 2 L/min via nasal cannula Heparin diluted in 23cc Heparinized saline. Patient given 10cc IA of this solution. 06/08/2020 07:38: 46 Verapamil 2.5mg, Ntg 100mcgs, 2000 units of Heparin diluted in 23cc Heparinized saline. Patient give n 10cc IA of this solution. 06/08/2020 07:38:46 SUMMARY OF HEMODYNAMIC DATA Time AIR REST ECG 07:21:55 AO 155/111 (130) SA 07:46:17 LV 174/-3, 08:11:45 LV 179/-3, 08:11:51 LV 183/-1, 08:12:47 LV 189/-2, 08:12:53 LVp 178/-5, 08:12:58 AOp 182/130 (150) 08:13:03 Signed By Dario Sharma MD On 06/08/2020 09:35:13 Dario Sharma MD
[2020-06-08] MEDS: Furosemide 40 MG Tablet PO (09:41)
--- NOTE | 2020-06-08 11:21 | PCM.DC ---
- Discharge Diagnoses Current Active Problems: Current Active and Chronic Problems Hypertension (Chronic) Acute congestive heart failure (Acute) Hypertensive urgency (Acute) Atrial fibrillation with rapid ventricular response (Acute) Abnormal electrocardiogram (Acute) You will use the following diet at home:: No restrictions Your food should be the consistency of: Regular Your liquids should be the consistency of: Regular/Thin Discharge Activity: Return to Normal Activity Weight Bearing Status: Full weight bearing Allergies/Adverse Reactions: Allergies No Known Allergies Allergy (Verified 06/06/20 13:48) Medications to take at Discharge Apixaban [Eliquis] 5 mg PO BID #60 tablet 06/08/20 Atorvastatin Calcium [Lipitor] 40 mg PO DAILY #30 tab 06/08/20 Lisinopril [Zestril] 20 mg PO BID #60 tab 06/08/20 Metoprolol Tartrate [Lopressor (beta gale)] 100 mg PO BID #60 tab 06/08/20 The following prescriptions were given: Apixaban [Eliquis] 5 mg PO BID #60 tablet Atorvastatin Calcium [Lipitor] 40 mg PO DAILY #30 tab Transmission Status: Pending to [id number] Metoprolol Tartrate [Lopressor (beta gale)] 100 mg PO BID #60 tab Transmission Status: Received by [id number] Lisinopril [Zestril] 20 mg PO BID #60 tab Transmission Status: Received by [id number] Primary Care Physician: Stephane Carlson MD [NON-STAFF] - Test Results: Test results from this visit will be discussed in further detail at your follow-up appointment, if applicable. Please Follow Up With: Dario Sharma MD When: in three weeks-call for appointment
--- NOTE | 2020-06-08 11:31 | CASEMGMT ---
Pt to be sent home on eelusion. Dr. Sosa states he called script to pharmacy yesterday and states pt's co-pay is $42. Pt/ updated and provided with eelusion $10 co-pay card at this time, voice understanding. Pt/ voice no further questions/concerns/needs at this time. Solomon OGDEN CM
--- NOTE | 2020-06-08 12:10 | PHA.DC.MC ---
Pharmacy Service has performed discharge medication reconciliation and counseling for this patient. 1. APIXABAN 5MG PO BID 2. ATORVASTATIN 40MG PO QHS 3. LISINOPRIL 20MG PO BID 4. METOPROLOL TARTRATE 100MG PO BID The patient's discharge medication list was reviewed for discrepancies and discrepancies were resolved. Home Medications Apixaban [Eliquis] 5 mg PO BID #60 tab 06/08/20 Atorvastatin Calcium [Lipitor] 40 mg PO DAILY #30 tab 06/08/20 Lisinopril [Zestril] 20 mg PO BID #60 tab 06/08/20 Metoprolol Tartrate [Lopressor (beta gale)] 100 mg PO BID #60 tab 06/08/20 The patient was counseled on the following discharge medications and changes in medications for homegoing were reviewed. The Reason for Use, instructions for use, and potential side effects were reviewed for all new medications. The patient's questions regarding all of their medications were answered. The patient was able to verbally demonstrate an understanding of their discharge medications.
--- NOTE | 2020-06-08 15:21 | PCM.PN.CARD ---
Subjectve: The patient underwent diagnostic cardiac catheterization earlier this day. He was evaluated and found to have no adverse post procedure related events. Objective: Vital Signs Temp Pulse Resp BP Pulse Ox 98.3 F 82 20 H 159/99 H 96 06/08/20 12:57 06/08/20 12:57 06/08/20 12:57 06/08/20 12:57 06/08/20 12:57 Oxygen Flow Rate (L/min) 4 Oxygen Delivery Method Room Air Weight: 384 lb 14.833 oz Body Mass Index (BMI) 45.6 Intake and Output for Last 24 Hours 06/06/20 06/07/20 06/08/20 23:59 23:59 23:59 Intake Total 781.16 / 1156.16 1845.66 / 1845.66 240 / 240 Output Total 1300 / 4550 7775 / 7775 1700 / 1700 Balance -518.84 / -3393.84 -5929.34 / -5929.34 -1460 / -1460 General: Awake, Alert, Oriented x 3, Cooperative, No Acute Distress HEENT: Atraumatic, Normocephalic, PERRL, EOMI, Sclera Non Icteric Neck: Supple, Good ROM, No JVD Lungs: Clear to auscultation Cardiovascular: Irregular Rhythm, Normal S1, Normal S2 Vascular: Normal Radial Pulses Abdomen: Bowel Sounds Present, Soft Extremities: Trace RLE Edema, Trace LLE Edema Neurological: No Focal Motor or Sensory Deficit Psych/Mental Status: Appropriate 06/08/20 04:56: Sodium 142, Potassium 3.6, Chloride 106, Carbon Dioxide 32.0, Anion Gap 4 L, BUN 19 H, Creatinine 1.20, Est GFR (MDRD) Af Amer 83, Est GFR (MDRD) Non-Af 69, BUN/Creatinine Ratio 15.8, Glucose 83, Calcium 8.4 L, Triglycerides 77, Cholesterol 136, LDL Cholesterol 89, VLDL Cholesterol 15, HDL Cholesterol 32 L Rhythm: Atrial fibrillation Cardiac Cath: CONCLUSIONS Elevated Left Ventricular End Diastolic Pressure Global LV systolic dysfunction- Mild LVEF: by LV gram 45 % [place] Multivessel CAD RECOMMENDATIONS Risk factor modification Medical therapy DESCRIPTION OF PROCEDURE The patient arrived to the procedure lab. The risks and benefits of the procedure as well as a full description of our services here and current unavailability of surgical backup were fully explained to the patient and/or their significant other prior to the catheterization. The Timeout was completed, verifying the correct patient and procedure. The patient's procedural site was prepped and draped in the usual fashion. Local anesthetic was given subcutaneously to right radial region with Lidocaine 2%. Using a modified Seldinger technique, arterial access was obtained via the right radial artery, a 6Fr sheath was inserted. Left Coronary Artery selective angiography was performed in multiple views using a 5 Fr. JL3.5 catheter. Right Coronary Artery selective angiography was then performed in multiple views using a 5 Fr. MPA 2 catheter. Left Ventriculography was performed in CARDENAS projection using a 5 Fr. Pigtail catheter. LV to AO pullback pressures were then recorded.The arterial sheath was pulled and a TR Band was applied for hemostasis 15cc air inserted CORONARY ANGIOGRAPHY DOMINANCE: Right Dominant LEFT HEART ASSESSMENT Left Ventricular Ejection Fraction: by LV Gram 45 % Global Hypokinesis - Mild Elevated Left Ventricular End Diastolic Pressure LVEDP: 21 mmHg LEFT MAIN: Angiographically normal LEFT ANTERIOR DESCENDING ARTERY: PROX LAD: Mild luminal irregularities DIAGONAL 1: Proximal - Mild luminal irregularities CIRCUMFLEX ARTERY: PROX CIRC: Mild luminal irregularities RIGHT CORONARY ARTERY: Mild luminal irregularities PROX RCA: 50 % Stenosis AORTIC ROOT: Angiographically normal Medical Necessity - Tobacco Use Smoking Status: Never smoker Tobacco Use: Non-smoker Assessment/Plan 1. Atrial fibrillation The patient presents with atrial fibrillation. The etiology may be multifactorial secondary to a combination of age, hypertension, as well as potentially other underlying cardiovascular disease related issues, taking into consideration to keep open for other etiologies that may occur. From a cardiac standpoint at the present time he is continuing rate control therapy. He will need to continue anticoagulation therapy as deemed appropriate. If he does not convert to sinus rhythm he will need to be considered for a future attempt at synchronized biphasic DC cardioversion. 2. Congestive heart failure There was concerns with the patient in the hospital that he had congestive heart failure. Based upon his noninvasive studies so far his overall LV systolic function appear to be grossly within normal limits/LVEF (taken into consideration was a technically diminished quality study). Upon his cardiac catheterization his overall LV systolic function appears to be mildly low (again taken into consideration was a technically diminished quality study based upon his underlying atrial dysrhythmia and body habitus) At the present time he will continue medical management. 3. Hypertension The patient was noted to be markedly hypertensive with findings concerning for hypertensive urgency/emergency when he arrived. This may be based upon his longstanding history of hypertension was not controlled. This may be contributing to his atrial dysrhythmia as well as potentially his findings that were concerning for CHF. He will need to have his blood pressure followed. He will need to continue medical management. 4. Abnormal ECG He does have dynamic T wave changes on his ECG concerning for anterolateral myocardial ischemia. Did undergo further evaluation with diagnostic cardiac catheterization. He did not appear to have angiographically significant appearing CAD requiring catheter-based or surgical based revascularization procedure. Thus his ECG changes may be related to a combination of his atrial dysrhythmia and his marked hypertension. 5. CAD He does have an element of CAD. He will need continued risk factor modification and care. His case was discussed and reviewed with Dr. Cochran interventional cardiology. There is no recommendation for any further catheter based diagnostic and/or revascularization procedures, etc. Comment: The patient's case was discussed and reviewed with the patient and Dr. Sosa. This note was generated using a voice recognition system and there may be incorrect words, spelling or punctuation that were not noted when reviewing the office note prior to saving.
--- NOTE | 2020-06-10 15:45 | DS.PCM_ITS ---
Discharge Date and Diagnosis - Problem List Patient Problems: Active and Suspected Problems (Last Updated 06/08/20 @ 14:50 by Salome Mcnally) Acute congestive heart failure (Acute) Hypertensive urgency (Acute) Atrial fibrillation with rapid ventricular response (Acute) Abnormal electrocardiogram (Acute) Date of Admission: 06/06/20 Date of Discharge: 06/08/20 - Primary Discharge Diagnosis Acute Problems: Active Problems (Last Updated 06/08/20 @ 14:50 by Salome Mcnally) #1 acute diastolic congestive heart failure-possibly exacerbated by uncontrolled hypertension and atrial fibrillation #2 new onset atrial fibrillation with rapid ventricular response #3 T wave changes across his precordial leads-etiology unclear #4 Hypertensive emergency #5 noncompliance with medical regimen #6 morbid obesity #7 hypokalemia #8 nonobstructive coronary disease - Secondary Discharge Diagnosis Chronic Problems: Chronic Problems (Last Updated 06/08/20 @ 14:50 by Salome Mcnally) Atherosclerotic heart disease of [place] coronary artery without angina pectoris (Chronic) Hypertension (Chronic) Hospital Course and Treatment Operations: None Procedures: 2-D Echocardiogram, Cardiac catheterization Summary of Care Provided: The patient is a 50 year old M who was seen in the emergency room at [facility] with a chief complaint of shortness of breath with exertion. Patient related to a past history of Covid at the beginning of April 2020. Patient was supposed to be on blood pressure medications but had not taken them in quite a while. Work-up in the emergency room occluded an EKG which showed atrial fibrillation with a rate of 135, patient's chest x-ray showed a mild degree of vascular congestion suggestive of a mild degree of CHF. Patient's beta natruretic peptide was 212, pressure was elevated at 214/149. Patient was given IV Cardizem and IV Lasix. Patient was admitted to PCU and he was given blood pressure medications and IV Lasix. He was seen in consultation by cardiology, echocardiogram was performed which showed a normal ejection fract ion, RV systolic pressure and pulmonary artery pressure was unable to be estimated. Patient was noted to have EKG changes during his hospital stay with inverted T waves across the precordial leads, it was felt prudent to rule out coronary artery disease and he underwent a cardiac catheterization which showed no evidence of obstructive coronary artery disease, there was noted to be a 50% stenosis in the right coronary artery and mild luminal irregularities in the left anterior descending artery and the proximal circumflex artery. On 06/08/2020, patient was seen and examined:General: Alert, Oriented x3, Cooperative, No apparent distress, Well developed HEENT: Atraumatic, PERRLA, EOMI, Normocephalic Oral: Moist Mucosa Neck: Supple, No JVD, Trachea Midline, Thyroid Normal Size and Texture Lungs: Clear to auscultation, Normal air movement, No rhonchi, No wheeze Cardiovascular: No murmurs, PMI Normal, Irregular Rate, No rub noted Abdomen: Bowel Sounds Present, Soft, Non Tender, Non-Distended, No hernias noted Extremities: No clubbing, No cyanosis, No edema, Capillary Refill Less than 3 Seconds Skin: No rashes, No breakdown Musculoskeletal: No Tenderness to Palpation of Joints or Extremities Neurological: Cranial nerves II-XII grossly intact, Neuro grossly intact, Sensory exam intact to light touch and pain, Coordination normal Psych/Mental Status: Normal Affect, Appropriate, Alert and oriented to time, place, person, mood and affect Patient was discharged in stable condition on 06/08/2020. Patient Problems: Active and Suspected Problems (Last Updated 06/08/20 @ 14:50 by Salome Mcnally) Acute congestive heart failure (Acute) Hypertensive urgency (Acute) Atrial fibrillation with rapid ventricular response (Acute) Abnormal electrocardiogram (Acute) - Physical Exam Vitals/I&O's: Vital Signs Temp Pulse Resp BP Pulse Ox 98.3 F 82 20 H 159/99 H 96 06/08/20 12:57 06/08/20 12:57 06/08/20 12:57 06/08/20 12:57 06/08/20 12:57 Oxygen Flow Rate (L/min) 4 Oxygen Delivery Method Room Air Weight: 174.6 kg Body Mass Index (BMI) 45.6 Intake and Output for Last 24 Hours 06/08/20 06/09/20 06/10/20 23:59 23:59 23:59 Intake Total 240 / 240 Output Total 1700 / 1700 Balance -1460 / -1460 Discharge Activity: Return to Normal Activity Weight Bearing Status: Full weight bearing Home Medications: Medications to take at Discharge Apixaban [Eliquis] 5 mg PO BID #60 tab 06/08/20 Atorvastatin Calcium [Lipitor] 40 mg PO DAILY #30 tab 06/08/20 Lisinopril [Zestril] 20 mg PO BID #60 tab 06/08/20 Metoprolol Tartrate [Lopressor (beta gale)] 100 mg PO BID #60 tab 06/08/20 Following Prescriptions Were Given to Patient: Apixaban [Eliquis] 5 mg PO BID #60 tab Atorvastatin Calcium [Lipitor] 40 mg PO DAILY #30 tab Transmission Status: Received by [id number] Metoprolol Tartrate [Lopressor (beta gale)] 100 mg PO BID #60 tab Transmission Status: Received by [id number] Lisinopril [Zestril] 20 mg PO BID #60 tab Transmission Status: Received by [id number] Primary Care Physician: Stephane Carlson MD [NON-STAFF] - Please Follow Up With: Dario Sharma MD When: in three weeks-call for appointment Disposition: Home Minutes spent on discharge:: 32 Patient Condition:: Stable Medical Necessity - Tobacco Use Smoking Status: Never smoker Tobacco Use: Non-smoker Meaningful Use Info Meaningful Use Diagnoses (Choose all that apply): CHF - CHF RADHA/ARB ordered at discharge?: Yes Documented LVEF (%): 55 Inpatient E&M: 68857 Disch Hosp
== END 2020-06-08 13:56 | disposition home or self-care (01) | DRG 286 ==
LOC: ED 16:48 → PCU 16:54
PROVIDERS: Admitting Provider Hospitalist; Emergency Provider Emergency Medicine; Visit Provider Internal Medicine
DX: I48.91 Unspecified atrial fibrillation (principal); I50.31 Acute diastolic (congestive) heart failure; I16.1 Hypertensive emergency; Z68.42 Body mass index [BMI] 45.0-49.9, adult; I25.10 Atherosclerotic heart disease of native coronary artery without angina pectoris; I11.0 Hypertensive heart disease with heart failure; E87.6 Hypokalemia; E66.01 Morbid (severe) obesity due to excess calories; Z91.19 Patient's noncompliance with other medical treatment and regimen; Z79.82 Long term (current) use of aspirin; Z79.899 Other long term (current) drug therapy; Z82.49 Family history of ischemic heart disease and other diseases of the circulatory system; Z86.16 Personal history of COVID-19
CPT/HCPCS: 36415; 71045; 80048; 80061; 83735; 83880; 84443; 84484; 85025; 85379; 87426; 93005; 93306; 93458; 94002; 94003; 97802; 99152; 99153; 99285; J7030; J7040; Q9957; Q9967; A4216; C1769; C1894; C8929; J1940

== ENCOUNTER 2020-07-28 14:01 | Outpatient (RCR) | payer OTHER, SELFPAY ==
[2020-06-28 15:12] VITALS: BMI 43.0
== END 2020-09-20 23:59 ==
LOC: IMMUN 14:01
PROVIDERS: PCP Family Medicine; Visit Provider Family Medicine
DX: Z23 Encounter for immunization (principal)
CPT/HCPCS: 0001A; 0002A; 91300

== ENCOUNTER → 2021-03-27 10:19 | Outpatient (CLI) | payer OTHER, SELFPAY | PROVIDERS: PCP Family Medicine; Visit Provider Family Medicine | DX: Z23 Encounter for immunization (principal) ==